=== PATIENT | male | born 1960 | race Caucasian/White ===

== ENCOUNTER 2016-10-17 12:45 | Emergency (ER) | payer BC ==
[~2016-10-17] VITALS: Ht 185.4 cm; Wt 79.4 kg
--- NOTE | ~2016-10-17 | EKG ---
[place] [address] [facility] [place] [address] ELECTROCARDIOGRAM REPORT Name: LEARAÚL C Room #: 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 : 1960 Requested By: Sebastian Griffith Order Number: [id number] MD: Stephon Pagan Measurements Intervals [place] Rate: 74 P: 3 NV: 145 QRS: 25 QRSD: 93 T: 29 QT: 387 QTc: 430 Interpretive Statements Sinus rhythm Probable left atrial enlargement RSR' in V1 or V2, right VCD No previous ECG available for comparison Electronically Signed On 10-19-2016 15:40:07 CDT by Stephon Pagan [email or web address] <ELECTRONICALLY SIGNED> By: Stephon Pagan MD, [facility] 10/19/16 1540 1310 1310 Stephon Pagan MD, FACC /EPI
[2016-10-17] MEDS ORDERED: CRESTOR10 MG PO (13:18)
[2016-10-17] MEDS ORDERED: PRINIVIL20 M1 PO (13:18)
[2016-10-17 13:28] LABS: ABSOLUTE NEUTROPHILS 4.7 thou/uL (1.4-8.2); BASOPHILS 0.9 % (0.0-2.0); EOSINOPHILS 1.7 % (0.0-3.0); HEMATOCRIT 47.6 % (42.0-52.0); HEMOGLOBIN 16.6 gm/dL (14.0-18.0); LYMPHOCYTES 28.5 % (24.0-44.0); MCH 31.4 pg (26.0-34.0); MCHC 34.8 g/dL (28.0-37.0); MCV 90.2 fL (80.0-100.0); MONOCYTES 9.9 % (1.0-8.0); PLATELET COUNT 327 thou/uL (150-400); RBC 5.27 mil/uL (4.50-6.00); RDW 13.9 % (10.5-14.5)
[2016-10-17 13:29] LABS: MANUAL DIFF NO
[2016-10-17 13:45] LABS: ANION GAP 11 mmol/L (7-16); BUN 13 mg/dL (7-18); CALCIUM 9.2 mg/dL (8.5-10.1); CHLORIDE 99 mmol/L (98-107); CO2 26 mmol/L (21-32); CREATININE 0.9 mg/dL (0.7-1.3); GLUCOSE 82 mg/dL (74-106); POTASSIUM 4.2 mmol/L (3.5-5.1); SODIUM 136 mmol/L (136-145)
[2016-10-17 13:48] LABS: NT-PRO BRAIN NAT PEPTIDE 99 pg/mL (<300); TROPONIN-I < 0.04 ng/mL (<0.04-0.07)
[2016-10-17] MEDS ORDERED: NORCO 5-325 TA1 EACH PO (16:08)
[2016-10-17] MEDS ORDERED: IBUPROFEN 600600 M1 PO (16:08)
[2016-10-17 16:25] VITALS: BP 105/67
== END 2016-10-17 16:29 | disposition home or self-care (01) ==
LOC: ER 12:45
PROVIDERS: Emergency Medicine
DX: R07.89 Other chest pain (principal); E78.00 Pure hypercholesterolemia, unspecified; F17.210 Nicotine dependence, cigarettes, uncomplicated; F10.99 Alcohol use, unspecified with unspecified alcohol-induced disorder

== ENCOUNTER → 2018-12-28 | Outpatient (CLI) | payer OTHER ==
[~2018-12-28] MED LIST: CRESTOR10 MG PO; IBUPROFEN 600600 M1 PO; NORCO 5-325 TA1 EACH PO; PRINIVIL20 M1 PO
== END ==
LOC: CAT 10:09
DX: Z13.6 Encounter for screening for cardiovascular disorders (principal); E78.00 Pure hypercholesterolemia, unspecified; I25.10 Atherosclerotic heart disease of native coronary artery without angina pectoris

== ENCOUNTER → 2019-02-15 | Outpatient (CLI) | payer BC, OTHER ==
[~2019-02-15] VITALS: Ht 180.3 cm; Wt 90.7 kg
[~2019-02-15] MED LIST changes: +LIPITOR 20 MG T20 M1 PO
[2019-02-15 11:00] VITALS: BP 141/74
[2019-02-15 11:07] LABS: HEMATOCRIT 46.9 % (42.0-52.0); HEMOGLOBIN 15.7 gm/dL (14.0-18.0); MCH 31.5 pg (26.0-34.0); MCHC 33.5 g/dL (28.0-37.0); MCV 94.1 fL (80.0-100.0); RBC 4.99 mil/uL (4.50-6.00); RDW 13.4 % (10.5-14.5); WBC 7.4 thou/uL (4.0-11.0)
[2019-02-15 11:15] LABS: CALCIUM 9.2 mg/dL (8.5-10.1); POTASSIUM 3.9 mmol/L (3.5-5.1)
--- NOTE | 2019-02-15 15:45 | EKG ---
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
--- NOTE | 2019-02-22 09:50 | CATHLAB ---
[facility] [address] [place] [address] INVASIVE PROCEDURE REPORT Name: RAÚL TATE Room #: REG [facility]#: [id number] Admission: 02/15/19 Attend Phys: Tab Hammer, Discharge: Date of : 60 Report #: [id number] THIS REPORT FOR: //name// APPROVED REPORT Study performed: 02/15/2019 11:29:25 Patient Details Patient Status: Out-Patient Room #: The patient is a 58 year-old male Event Personnel Yony Mosqueda Theoretical Physicist, Ingrid Ta RN RN, Clara Elaine Monitor, Gretta Gillette RTR, PRODUCT GRADER Scrub Procedures Performed Art Access - R femoral artery* 80287 Initial Mod Sed Same Phys/QHP Gr5y 689938 Left Heart Cath w/or w/o Coronaries [id number] C Hemostasis w/ Mynx supervision of conscious sedation Indication Positive stress test, Chest pain Procedure Narrative The patient was brought electively to the Cardiac Catheterization Laboratory and was prepped and draped in a sterile manner. The Right Groin^ was infiltrated with subcutaneous anesthesia. A PINNACLE 4FR Sheath #[id number] sheath was inserted into the RFA^. Coronary angiography was performed using coronary diagnostic catheters. The right coronary system was accessed and visualized with a JR 4 catheter. The left coronary system was accessed and visualized with a JL 5 catheter. The left ventricle was accessed and visualized with a Pigtail catheter. Left ventricular/Aortic Valve gradient assessed via catheter pullback. Closure device was deployed with a 5 Fr Mynx. The patient tolerated the procedure well and there were no complications associated with the procedure. There was no hematoma. Intraoperative Conscious Sedation Sedation start time: 11:58 Case end Time: 12:25 Versed 2 mg Fluoro Time: 7.03 minutes [facility] [place] [place] [address] INVASIVE PROCEDURE REPORT Name: RAÚL TATE Room #: REG [facility]#: [id number] Admission: 02/15/19 Attend Phys: Tab Hammer, Discharge: Date of : 60 Report #: [id number] Dose: DAP 6362.00 cGycm2 884 mGy Contrast Type and Amount: Omnipaque 100 ml Coronary Angiography The patient's coronary anatomy is co- dominant. Diagnostic Cath Left Main Normal origin and caliber bifurcates into the descending left circumflex free of high-grade disease. It is short in length. LAD Small to moderate caliber type III vessel which courses in the anterior interventricular sulcus giving rise to septal and diagonal branches. There is only minimal regularities noted as it courses) the posterior aspect of the ventricle Diagonal 1 Small-caliber vessel coursing along the anterolateral wall. High-grade disease Circumflex Monitor large-caliber codominant vessel personally moderate caliber marginal branch. This is free of high-grade disease of circumflex and contains facility giving rise to 2 posterior wall branches are moderate to small in size and a small posterior descending artery. 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 Hemodynamics The aortic pressure is 125/69 mmHg with a mean of 97 mmHg. The left ventricular pressure is 132/10 mmHg with a mean of mmHg. The left ventricular end diastolic pressure is 21 mmHg. Conclusion 1. Essentially normal coronary arteries 2. Normal hemodynamics Recommendations [facility] [address] [place] [address] INVASIVE PROCEDURE REPORT Name: LEARAÚL Delma Room #: [facility]#: [id number] Admission: 02/15/19 Attend Phys: Tab Hammer, Discharge: Date of : 60 Report #: [id number] Cardiac Risk Reduction Program Medical Therapy <ELECTRONICALLY SIGNED> By: Yony Mosqueda MD 02/22/1950 Yony Mosqueda MD /INF
== END | disposition home or self-care (01) ==
LOC: CATH 10:29
PROVIDERS: Internal Medicine
DX: R07.9 Chest pain, unspecified (principal); I87.2 Venous insufficiency (chronic) (peripheral); I10 Essential (primary) hypertension; E78.00 Pure hypercholesterolemia, unspecified; I73.9 Peripheral vascular disease, unspecified; Z87.891 Personal history of nicotine dependence; Z98.890 Other specified postprocedural states; Z79.899 Other long term (current) drug therapy

== ENCOUNTER → 2021-02-12 | Outpatient (CLI) | payer BC, OTHER | LOC: CAT 09:11 | PROVIDERS: ATTEND Surgery | DX: K76.0 Fatty (change of) liver, not elsewhere classified (principal); K80.80 Other cholelithiasis without obstruction; K42.9 Umbilical hernia without obstruction or gangrene; M47.815 Spondylosis without myelopathy or radiculopathy, thoracolumbar region; R10.9 Unspecified abdominal pain; K59.00 Constipation, unspecified; N32.89 Other specified disorders of bladder ==

== ENCOUNTER → 2021-07-03 | Day surgery (SDC) | payer BC, OTHER ==
[~2021-07-03] VITALS: Ht 180.3 cm; Wt 90.7 kg
[~2021-07-03] MED LIST changes: +HYDROCODON-ACE1 EAC7 PO
[2021-07-03 09:34] VITALS: BP 126/78
--- NOTE | 2021-07-03 11:31 | EKG ---
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: : 1960 Requested By: Juan Vergara Order Number: [id number] MD: Angel Linda Measurements Intervals [place] Rate: 73 P: 39 WV: 124 QRS: 46 QRSD: 93 T: 60 QT: 399 QTc: 440 Interpretive Statements Sinus rhythm Probable left atrial enlargement RSR' in V1 or V2, right VCD or RVH Compared to ECG 02/15/2019 11:02:08 Right ventricular hypertrophy now present RSR' in V1 or V2 now present Electronically Signed On 07-03-2021 11:31:29 LIGHTER CAPTAIN by Angel Linda [email or web address] <ELECTRONICALLY SIGNED> By: Angel Linda MD, [facility] 07/03/21 1131 0836 0836 Angel Linda MD, [facility] /EPI
[2021-07-03 12:37] VITALS: BP 126/78
--- NOTE | 2021-07-04 12:42 | O ---
[facility] [place] [address] OPERATIVE REPORT Name: RAÚL TATE Room #: REG [facility].#: [id number] Admission: 07/03/21 Attend Phys: Joshua Antonio MD Discharge: Date of : 60 Report #: [id number] THIS REPORT FOR: cc: Glenna Royal Beth RNP Chu, Peter Y. MD ~ DATE OF SERVICE: 07/03/2021 PREOPERATIVE DIAGNOSIS: CHOLECYSTITIS WITH CHOLELITHIASIS, FIBROTIC DISTAL GB UMBILICAL HERNIA POSTOPERATIVE DIAGNOSIS: SAME WITH SMALL BLACKISH STONES PROCEDURE PERFORMED: LAPAROSCOPIC CHOLECYSTECTOMY WITH GRAMS AND Repair of umbilical hernia. COMPLICATIONS: None. BLOOD LOSS: 5 mL. OPERATIVE FINDINGS: The distal half of the gallbladder was markedly thickened and this thickening is more inflammatory rather than representing malignancy. The patient did have multiple small black stones in the gallbladder. The proximal half of gallbladder was not thickened. There is quite a bit of dense adhesion over the gallbladder, consistent with chronic inflammation probably a long duration. This intraoperative cholangiogram showed an air bubble, but that flushed through. No persistent filling defect was seen. SURGEON: Joshua Antonio M.D. PROCEDURE IN DETAIL: With the patient under general anesthesia, abdomen was prepped and draped in sterile fashion. A timeout was performed. IV antibiotic was administered preop. A 0.25% Marcaine was used to anesthetize the skin. A curvilinear incision was then made infraumbilically about 2.5 cm in size. The skin incision was made and the herniated properitoneal fat was identified. This was freed from the overlying skin. There was quite a bit of the fat lobules through the fascia. The fat was free from the fascia and then reduced back into the properitoneal space. Some of the fascia could be omentum. A 0 Vicryl suture placed on the fascial edges. Veress needle was then placed through the peritoneum. Abdominal cavity was insufflated with CO2 without difficulty. After creating pneumoperitoneum, 11 mm trocar was placed into the pneumoperitoneum. The umbilical fascia defect was utilized for the trocar placement. Two 5 mm trocars placed in right upper quadrant, another 5 mm trocar placed in right epigastrium. The gallbladder was identified. The gallbladder was covered by large amount of fatty adhesion. The distal fundus of the gallbladder was markedly thickened. The fatty adhesions were and then [address] [address] OPERATIVE REPORT Name: LEARAÚL DELANO Room #: REG [facility]..#: [id number] Admission: 07/03/21 Attend Phys: Joshua Antonio MD Discharge: Date of : 60 Report #: [id number] freed from the gallbladder. The proximal gallbladder was then found. The proximal gallbladder had a fairly normal looking wall thickness. Continued adhesions were freed and the gallbladder was totally isolated. The patient's cystic artery was noted to be the first structure that was able to be easily found and isolated. The cystic artery was clipped x 2 proximally, one distally and then divided. This does have appearance of an artery. Further dissection did identify the cystic duct. The cystic duct was isolated. The cystic duct was followed to the gallbladder and the proximal gallbladder is folded over the cystic duct. A clip was placed in junction of cystic duct to the gallbladder, opening in the cystic duct. Cholangiogram catheter was placed. Fluoroscopic cholangiogram was obtained. The common bile duct on the initial run showed air bubble of the hepatic duct area. I could not really see where it went. Saline was used to flush the duct and a repeat injection was performed. At second run, I did not see any filling defect. The cholangiogram catheter was noted in the cystic duct. No harm to the common duct. The catheter was then removed. The proximal cystic duct was clipped x 2 and then divided. The gallbladder was then able to be freed from the liver bed without difficulty. The gallbladder was divided from the liver bed without difficulty. Gallbladder was placed in a specimen bag and retrieved through the umbilical fascia defect, due to the thickening of the gallbladder does have to enlarge the opening of the hernia defect and to extract the bag with the gallbladder. The gallbladder was opened off the field. The distal half gallbladder was markedly thickened and there are multiple small blackish stones within the gallbladder. There is no mucosal lesion to suggest a malignancy that I could tell. The specimen was then sent to pathology for analysis. The liver bed was irrigated, hemostasis obtained. Irrigation was aspirated out. The trocars were then removed. CO2 was then also removed as much as possible. The fascia defect at the umbilicus was then cleaned off. The defect was about 2.5 cm. The fascia was brought together with a 0 Prolene suture in a [id number] interrupted fashion x 3. Closure of the umbilical hernia was achieved without undue tension. The repair felt sturdy. Irrigation was performed of the subcutaneous tissue. The skin was closed with 5-0 PDS. Steri-Strip, Band-Aids applied. The patient tolerated the procedure well. <ELECTRONICALLY SIGNED> By: Joshua Antonio MD 07/04/21 1242 09 34 Joshua Antonio MD /nt
--- NOTE | 2021-07-05 09:08 | PATH ---
[facility] [address] [place] [address] PATHOLOGY RPT PROCEDURE Name: RAÚL TATE Room #: REG [facility] M.R.#: [id number] Admission: 07/03/21 Date of : 60 Discharge: Report #: [id number] Path Case #: [id number] [facility] Accession Number: [id number] . 01 Material submitted: . gallbladder - GALLBLADDER . 01 Clinical history: . HERNIA REPAIR UMBILICAL HERNIA CHOLECYSTITIS . 02 Diagnosis: Gallbladder, cholecystectomy: - Subacute cholecystitis with cholelithiasis. - Negative for malignancy. (ANK/db; 07/04/2021) LBQ 07/04/2021 1458 Local . 02 Electronically signed: . Lorene Berrios MD, Pathologist NPI- [id number] . 01 Gross description: . Fixative: Formalin Labeled: Gallbladder Specimen received: Previously opened gallbladder Dimensions: 8.1 x 3.5 x 3.5 cm Serosa: [place]-mclean to yellow-mclean, roughened and disrupted Lymph node: Not identified Mucosa: Green-brown, velvety Average wall thickness: Up to 1.1 cm Calculi: Multiple black, granular calculi ranging in size from 0.1-0.2 cm Abnormalities: Thickened wall with severe amounts of attached adipose tissue . A1- 2 possible lead generation representative sections of cystic duct margin A2- High School Tutor section of body A3- High School Tutor section of fundus ([facility]; 07/03/2021) NRI/NRI 07/03/2021 1905 Local . 02 Pathologist provided ICD-10: K80.00 . 02 CPT . 398137 Specimen Comment: A courtesy copy of this report has been sent to [phone] [phone] PATHOLOGY RPT PROCEDURE Name: LEARAÚLMERRILL WICK Room #: REG [facility].#: [id number] Admission: 07/03/21 Date of : 60 Discharge: Report #: [id number] Path Case #: [id number] Specimen Comment: [id number] Specimen Comment: Report sent to / DR PEGUERO Performed at: 01 [facility] [address] [facility] [address], [place], [place] [id number] MD Phillip Aranda MD Phone: [phone] Performed at: [address] [facility] [address] [id number] MD Lorene Berrios MD Phone: [phone]
== END | disposition home or self-care (01) ==
LOC: OR 07:17
PROVIDERS: ATTEND Surgery
DX: K80.18 Calculus of gallbladder with other cholecystitis without obstruction (principal); K42.9 Umbilical hernia without obstruction or gangrene; I10 Essential (primary) hypertension; I25.10 Atherosclerotic heart disease of native coronary artery without angina pectoris; E78.00 Pure hypercholesterolemia, unspecified; F17.210 Nicotine dependence, cigarettes, uncomplicated; Z98.890 Other specified postprocedural states; Z79.899 Other long term (current) drug therapy; Z20.822 Contact with and (suspected) exposure to COVID-19
CPT/HCPCS: 50010; 50101; 50411; 51489; 52265; 53307; 53310; 53312; 55245; 55317; 56462; 56525; 56526; 58574; 58910; 62110; 62900; 70005